=== PATIENT | female | born 1995 | race Caucasian/White ===

== ENCOUNTER 2023-05-29 08:13 | Inpatient (IN) | payer MEDICAID, SELFPAY ==
[2023-05-29] VITALS (9 sets, daily range): BP systolic 103–131; BP diastolic 55–75; PULSE 108–132; RESP 16–20; TEMP 37.1–39.4; O2SAT 98–100; BMI 30.1
--- NOTE | ~2023-05-29 | US_ITS ---
EXAMINATION: US RETROPERITONEAL LIMITED (RENAL ONLY) CLINICAL INFORMATION: UTI. Left CVAT. Question stone versus biloma. COMPARISON: None available. TECHNIQUE: Routine retroperitoneal grayscale imaging of kidneys is performed. FINDINGS: RIGHT KIDNEY: 11.3 x 4.3 x 6.5 cm cm (SAG x AP x TRV). The kidney is normal in size, contour, and echogenicity. Renal cortical thickness is normal. No calculi or focal parenchymal lesions. No hydronephrosis. LEFT KIDNEY: 11.0 x 6.0 x 5.2 cm. cm (SAG x AP x TRV). The kidney is normal in size, contour with increased areas of echogenicity appearing wedge-shaped in the renal cortex suspicious for acute pyelonephritis.. Renal cortical thickness is normal. No calculi or focal parenchymal lesions. No hydronephrosis. US/US renal BI IMPRESSION: 1. Suspect acute pyelonephritis left kidney. No echogenic stones or hydronephrosis seen. 2. The right kidney is unremarkable.
[2023-05-29] MEDS: Acetaminophen 325 MG TABLET 650 MG PO ×2 (09:06→18:45)
[2023-05-29 09:09] LABS: MANUAL DIFF FLAG NO
[2023-05-29 09:13] LABS: Basophils Percent Auto 0.3 % (0-2); Hematocrit 36.7 % (37.0-47.0); Hemoglobin 12.4 g/dl (12.0-16.0); Imm Gran Abs Auto 0.04 X10*3/uL (0.00-0.03); Imm Gran Pct Auto 0.4 % (0.0-0.4); Lymphocytes Absolute Auto 1.3 X10*3/uL (1.2-4.9); Lymphocytes Percent Auto 13.9 % (20-40); Mean Corpuscular HGB Conc 33.8 g/dl (31.0-35.0); Mean Corpuscular Hemoglobin 30.5 pg (27.0-33.0); Mean Corpuscular Volume 90.4 fL (80.0-98.0); Mean Platelet Volume 9.9 fL (9.4-12.3); Monocytes Absolute Auto 1.2 X10*3/uL (0.1-1.2); Monocytes Percent Auto 12.5 % (2-11); Neutrophils Absolute Auto 6.7 x10*3/uL (2.0-8.3); Neutrophils Percent Auto 72.9 % (45-73); Platelet Count 272 X10*3/uL (160-400); Red Blood Count 4.06 X10*6/uL (4.20-5.50); Red Cell Distribution Width 13.9 % (11.0-16.0); White Blood Count 9.2 X10*3/uL (4.8-10.8)
[2023-05-29 09:24] LABS: Anion Gap 12 (12-20); Blood Urea Nitrogen 8 mg/dL (9-16); Calcium 8.9 mg/dL (8.4-10.2); Carbon Dioxide 22 mmol/L (22-29); Chloride 107 mmol/L (96-108); Creatinine Clr Calc Pharmacy 102.9; Estimated Glomerular Filt Rate > 60; Glucose Random 99 mg/dL (60-115); Potassium 3.3 mmol/L (3.3-5.1); Sodium 138 mmol/L (135-145)
[2023-05-29 09:47] LABS: Appearance Urine Hazy; Color Urine RED; Glucose Urine UA Negative (Negative); Leukocyte Esterase Urine Negative (Negative); Nitrite Urine Positive (Negative); PH 5.5 (5.0-9.0); UMIC TRIGGER UACC YES; Urine Blood Large (3+) (Negative); Urine Protein 100 (2+) mg/dL (Neg-Trace)
[2023-05-29 09:49] LABS: UPreg QC Valid YES; Urine Pregnancy NEGATIVE (NEGATIVE)
[2023-05-29 10:07] LABS: Bacteria Urine 4+ (None Seen); Hyaline Casts Urine 0-2 /LPF (0-2); RBC Urine >20 /HPF (0-2); UACC Culture Trigger YES
--- NOTE | 2023-05-29 12:24 | ED_ITS ---
HPI - General Adult General Chief complaint: General Medical Stated complaint: back pain headache blood in urine Time Seen by Provider: 05/29/23 12:21 Source: patient, RN notes reviewed and old records reviewed Mode of arrival: ambulatory History of Present Illness HPI narrative: 28-year-old female with a past medical history of renal stones presenting to the ED complaining of fever T-max 101 degrees, left low back pain, hematuria, and chills worsening x1 week. Admits symptoms were similar to prior kidney stones. Denies nausea/vomiting, diarrhea/constipation, abdominal pain Onset (ago): week(s) Related Data Allergies Allergy/AdvReac Type Severity Reaction Status Date / Time No Known Allergies Allergy Verified 05/29/23 08:53 Review of Systems 2 Review of Systems: Constitutional: + Fever, No Chills ENT/Mouth: No Ear Pain, No Nasal Congestion, No sore throat, No Rhinorrhea, No Swallowing Difficulty Cardiovascular: No Chest Pain, No SOB Respiratory: No Cough, No Sputum, No Wheezing Gastrointestinal: No Nausea, No Vomiting, No Diarrhea, No Constipation, No Abdominal pain Genitourinary: No Dysuria, No Urinary Frequency, + Hematuria, No Urinary Incontinence/retention, No Urgency, + Flank Pain Musculoskeletal: No joint pain, No Myalgias, No Joint Swelling Skin: No Skin Lesions, No rash Neuro: No Weakness Yes all other systems are reviewed and are negative Constitutional: Constitutional: Reports as per [facility] Past Medical History Attestation statement: The following information was validated with the patient. Source: old records reviewed Social History Social History Smoked in Last 30 Days: No Use of substances other than those prescribed or required for medical reasons: No Advance Directives: No Advance Directives Information Provided: No Physical Exam ED Vital Signs: Vital Signs - 24 hr 05/29/23 08:53 05/29/23 11:53 05/29/23 12:24 Temperature 99.9 F 98.9 F 98.7 F Pulse Rate 116 H 108 H 110 H Respiratory Rate 18 18 18 Blood Pressure 115/75 103/68 131/64 Pulse Oximetry 100 98 99 Oxygen Delivery Method Room Air Room Air Room Air 05/29/23 12:38 05/29/23 13:56 05/29/23 13:56 Temperature 99.7 F Pulse Rate 109 H Respiratory Rate 16 18 18 Blood Pressure 106/70 Pulse Oximetry 99 Oxygen Delivery Method Room Air BMI result Body Mass Index 30.1 Const General: cooperative, healthy appearing and no acute distress Orientation/consciousness: patient oriented x3 Limitations: no limitations HENMT Head: Yes normal to inspection and Yes atraumatic Ears: hearing grossly normal bilaterally General nose exam: Normal external nose present Face and sinus: Yes normal facial exam Eyes General: appearance normal, both eyes and all related structures EOM: EOMs intact bilaterally Neck Neck: Yes normal visual inspection and Yes no meningeal signs Resp Effort & Inspection: normal respiratory effort and no respiratory distress Auscultation: clear to auscultation bilaterally Cardio Rate: regular rate Heart sounds: S1 normal heart sound present and S2 normal heart sound present GI Inspection: Yes normal to inspection Palpation (GI): Soft to palpation, nontender, no guarding and not rigid General: Yes CVA tenderness on the left Back/Spine/Pelvis Back: CVA tenderness Skin Rashes: no rashes Wounds: no wounds Neuro General: patient oriented x3, tone normal and no meningeal signs Cranial nerves: Yes CN's II-XII intact bilaterally Gait exam (Neuro): Normal gait present Extrem General: Yes normal to inspection Course Course Course Narrative: -1252--no leukocytosis. Magnesium mildly low to 1.5 >> p.o. repletion ordered -UA infected and with RBCs > lactic/blood cultures and empiric IV Rocephin ordered US renal BI IMPRESSION: 1. Suspect acute pyelonephritis left kidney. No echogenic stones or hydronephrosis seen. 2. The right kidney is unremarkable. > on re-evaluation patient is still very pale and uncomfortable. Will give IV morphine. Plan for admission. Medications Administered Discontinued Medications Generic Name Dose Route Start Last Admin Trade Name Freq PRN Reason Stop Dose Admin Acetaminophen 650 mg 05/29/23 08:57 05/29/23 09:06 Acetaminophen 325 Mg Tablet PO 05/29/23 08:58 650 mg ONCE ONE Administration Sodium Chloride 1,000 mls @ 999 mls/hr 05/29/23 12:30 05/29/23 13:56 Ns IV 05/29/23 13:30 Infused .Q1H1M DAIANA Infusion Ceftriaxone Sodium 1 gm/ 50 mls @ 100 mls/hr 05/29/23 12:30 05/29/23 13:59 Sodium Chloride IV 05/29/23 12:59 Infused ONCE ONE Infusion Sodium Chloride 1,000 mls @ 999 mls/hr 05/29/23 12:45 05/29/23 13:56 Ns IV 05/29/23 13:45 999 mls/hr .Q1H1M DAIANA Administration Ketorolac Tromethamine 15 mg 05/29/23 12:30 05/29/23 12:42 Ketorolac Tromethamine 15 Mg/Ml Vial IVPUSH 05/29/23 12:31 15 mg ONCE ONE Administration Magnesium Oxide 800 mg 05/29/23 12:53 05/29/23 13:55 Magnesium Oxide 400 Mg Tablet PO 05/29/23 12:54 800 mg ONCE ONE Administration Medical Decision Making Medical Decision Making MDM Narrative: 28-year-old female with a past medical history of renal stones presenting to the ED complaining of fever T-max 101 degrees, left low back pain, hematuria, and chills worsening x1 week. On exam low-grade temp 99.9, tachycardic likely from fever, appears uncomfortable, abdomen soft/nontender, left CVAT noted. Concern for renal stone vs UTI/pyelo. Lower suspicion for appendicitis/diverticulitis or cholecystitis/lithiasis. Plan: Labs, UA, IVF, pain control/antipyretic, ultrasound, re-evaluate, +/- anticipated admission Please refer to course for remaining clinical decision making, interpretation of labs/imaging results, and discussions with consultants and/or family members. Differential Diagnosis Differential Diagnoses: The differential diagnosis associated with the presentation includes As above Admission/Observation Consideration of admission/observation: Escalation of care including admission/observation considered Lab Data [facility] Lab Attestation statement: I reviewed the patient's lab results. 05/29/23 09:04 05/29/23 09:04 Labs: Lab Results 05/29/23 05/29/23 05/29/23 Range/Units 09:04 09:38 12:36 WBC 9.2 (4.8-10.8) X10*3/uL RBC 4.06 L (4.20-5.50) X10*6/uL Hgb 12.4 (12.0-16.0) g/dl Hct 36.7 L (37.0-47.0) % MCV 90.4 (80.0-98.0) fL MCH 30.5 (27.0-33.0) pg MCHC 33.8 (31.0-35.0) g/dl RDW 13.9 (11.0-16.0) % Plt Count 272 (160-400) X10*3/uL MPV 9.9 (9.4-12.3) fL Immature Gran % (Auto) 0.4 (0.0-0.4) % Neut % (Auto) 72.9 (45-73) % Lymph % (Auto) 13.9 L (20-40) % [place] % (Auto) 12.5 H (2-11) % Eos % (Auto) 0.0 (0-4) % Baso % (Auto) 0.3 (0-2) % Lymph # (Auto) 1.3 (1.2-4.9) X10*3/uL [place] # (Auto) 1.2 (0.1-1.2) X10*3/uL Eos # (Auto) 0.0 (0.0-0.4) X10*3/uL Baso # (Auto) 0.0 (0.0-0.2) X10*3/uL Abs Immat Gran (auto) 0.04 H (0.00-0.03) X10*3/uL Absolute Neuts (auto) 6.7 (2.0-8.3) x10*3/uL Absolute Nucleated RBC 0.000 (0.0-0.012) X10*3/uL Nucleated RBC % (auto) 0.0 (0.0-0.2) /100WBC Sodium 138 (135-145) mmol/L Potassium 3.3 (3.3-5.1) mmol/L Chloride 107 (96-108) mmol/L Carbon Dioxide 22 (22-29) mmol/L Anion Gap 12 (12-20) BUN 8 L (9-16) mg/dL Creatinine 0.71 (0.5-1.4) mg/dL Estim Creat Clear Calc 102.9 Estimated GFR > 60 Random Glucose 99 (60-115) mg/dL Lactic Acid 0.8 (0.5-2.0) mmol/L Calcium 8.9 (8.4-10.2) mg/dL Magnesium 1.5 L (1.6-2.6) mg/dL Total Bilirubin 0.6 (0.0-1.0) mg/dL Direct Bilirubin 0.2 (0.0-0.5) mg/dL AST 15 (5-31) U/L ALT 12 (0-31) U/L Alkaline Phosphatase 53 (39-117) U/L Total Protein 7.4 (6.5-8.0) g/dL Albumin 3.9 (3.5-5.0) g/dL Lipase 10 (8-78) U/L Urine Color RED Urine Appearance Hazy Urine pH 5.5 (5.0-9.0) Ur Specific [place] 1.020 (1.005-1.025) Urine Protein 100 (2+) H (Neg-Trace) mg/dL Urine Glucose (UA) Negative (Negative) mg/dL Urine Ketones See Note (Negative) mg/dL Urine Blood Large (3+) H (Negative) Urine Nitrite Positive H (Negative) Ur Leukocyte Esterase Negative (Negative) Urine RBC >20 H (0-2) /HPF Urine WBC 11-20 H (0-5) /HPF Ur Squamous Epith Cells 3-5 (0-2) /HPF Urine Bacteria 4+ (None Seen) Hyaline Casts 0-2 (0-2) /LPF Urine Test NEGATIVE (NEGATIVE) COVID-19 (KIERSTEN) (Negative) COVID-19 Clin Com Influenza Type A (HYACINTH) (Negative) Influenza Type B (HYACINTH) (Negative) Influenza A & B Note 05/29/23 Range/Units 13:07 WBC (4.8-10.8) X10*3/uL RBC (4.20-5.50) X10*6/uL Hgb (12.0-16.0) g/dl Hct (37.0-47.0) % MCV (80.0-98.0) fL MCH (27.0-33.0) pg MCHC (31.0-35.0) g/dl RDW (11.0-16.0) % Plt Count (160-400) X10*3/uL MPV (9.4-12.3) fL Immature Gran % (Auto) (0.0-0.4) % Neut % (Auto) (45-73) % Lymph % (Auto) (20-40) % [place] % (Auto) (2-11) % Eos % (Auto) (0-4) % Baso % (Auto) (0-2) % Lymph # (Auto) (1.2-4.9) X10*3/uL [place] # (Auto) (0.1-1.2) X10*3/uL Eos # (Auto) (0.0-0.4) X10*3/uL Baso # (Auto) (0.0-0.2) X10*3/uL Abs Immat Gran (auto) (0.00-0.03) X10*3/uL Absolute Neuts (auto) (2.0-8.3) x10*3/uL Absolute Nucleated RBC (0.0-0.012) X10*3/uL Nucleated RBC % (auto) (0.0-0.2) /100WBC Sodium (135-145) mmol/L Potassium (3.3-5.1) mmol/L Chloride (96-108) mmol/L Carbon Dioxide (22-29) mmol/L Anion Gap (12-20) BUN (9-16) mg/dL Creatinine (0.5-1.4) mg/dL Estim Creat Clear Calc Estimated GFR Random Glucose (60-115) mg/dL Lactic Acid (0.5-2.0) mmol/L Calcium (8.4-10.2) mg/dL Magnesium (1.6-2.6) mg/dL Total Bilirubin (0.0-1.0) mg/dL Direct Bilirubin (0.0-0.5) mg/dL AST (5-31) U/L ALT (0-31) U/L Alkaline Phosphatase (39-117) U/L Total Protein (6.5-8.0) g/dL Albumin (3.5-5.0) g/dL Lipase (8-78) U/L Urine Color Urine Appearance Urine pH (5.0-9.0) Ur Specific [place] (1.005-1.025) Urine Protein (Neg-Trace) mg/dL Urine Glucose (UA) (Negative) mg/dL Urine Ketones (Negative) mg/dL Urine Blood (Negative) Urine Nitrite (Negative) Ur Leukocyte Esterase (Negative) Urine RBC (0-2) /HPF Urine WBC (0-5) /HPF Ur Squamous Epith Cells (0-2) /HPF Urine Bacteria (None Seen) Hyaline Casts (0-2) /LPF Urine Test (NEGATIVE) COVID-19 (KIERSTEN) Negative (Negative) COVID-19 Clin Com See Note Influenza Type A (HYACINTH) Negative (Negative) Influenza Type B (HYACINTH) Negative (Negative) Influenza A & B Note See Note Independent Interpretation I performed an independent interpretation of an: Ultrasound Radiology Impression Discussion of test interpretation with radiology: I have reviewed the radiologist's reading. External Record Review External record reviewed: Inpatient record, Office record, Outpatient record, Prior outpatient labs, Prior outpatient radiology, Primary care record and Outside ED record Tests considered The following testing was considered but not selected: As above Prescription Management I considered prescription management with: Pain Medication and Antibiotic Critical Care Time Critical Care Time Critical Care Time: Yes Total Critical Care Time: 32 Attestation: I have personally provided critical care time exclusive of time spent on separately billable procedures. Time includes review of lab data, radiology results, discussion with consultants, and monitoring for potential decompensation. Intervention performed as documented. Discharge Plan Discharge Clinical Impression: Pyelonephritis Patient Disposition: Admitted As Inpatient
[2023-05-29] MEDS: 0.9 % Sodium Chloride 1,000 ML 999 ML IV ×2 (12:38→13:56)
[2023-05-29] MEDS: Ketorolac Tromethamine 15 MG/ML VIAL IVPUSH ×2 (12:42→15:17)
--- NOTE | 2023-05-29 12:44 | PC.NURSE ---
sent first set 's w [employer]. tech to draw next set before abx
[2023-05-29 12:49] LABS: Alanine Aminotransferase 12 U/L (0-31); Albumin Level 3.9 g/dL (3.5-5.0); Alkaline Phosphatase 53 U/L (39-117); Aspartate Amino Transferase 15 U/L (5-31); Bilirubin Direct 0.2 mg/dL (0.0-0.5); Bilirubin Total 0.6 mg/dL (0.0-1.0); Lipase 10 U/L (8-78); Magnesium 1.5 mg/dL (1.6-2.6); Total Protein 7.4 g/dL (6.5-8.0)
[2023-05-29 13:01] LABS: Lactic Acid 0.8 mmol/L (0.5-2.0)
[2023-05-29] MEDS: cefTRIAXone sodium 1 GM in 0.9 % Sodium Chloride 50 ML IV (13:13)
[2023-05-29 13:34] LABS: IDNOW Serial# 08D9AD1C; Influenza A Negative (Negative); Influenza B2 Negative (Negative)
[2023-05-29 13:35] LABS: COVID-19 Test Negative (Negative); IDNOW Serial# BCCEAD1C
[2023-05-29] MEDS: Magnesium Oxide 400 MG TABLET 800 MG PO (13:55)
--- NOTE | 2023-05-29 13:58 | PC.NURSE ---
tad driscoll notified 99.7, feels warm. pa also notified 5/10 pain
[2023-05-29] MEDS: Morphine Sulfate 2 MG/ML CARTRIDGE IVPUSH ×2 (15:17→18:45)
--- NOTE | 2023-05-29 15:56 | P.HPHOSP_ITS ---
History of Present Illness Date of Service: 05/29/23 Chief Complaint: Left flank pain 28-year-old female past medical history significant for renal calculi presents to the emergency room today with fever of 101 left low back pain and hematuria and chills worsening over the last week. She states the symptoms are similar to past kidney stones. In the emergency room workup is consistent with pyelonephritis. She received ceftriaxone IV and will be admitted for treatment of same Review of Systems 2 Review of Systems: Denies chest pain Denies shortness of breath Denies fever chills Denies nausea vomiting diarrhea PMFSH Social History Smoked in Last 30 Days: No Use of substances other than those prescribed or required for medical reasons: No Advance Directives: No Advance Directives Information Provided: No Meds Allergies Allergy/AdvReac Type Severity Reaction Status Date / Time No Known Allergies Allergy Verified 05/29/23 08:53 Active Medications: Current Medications Acetaminophen (Acetaminophen 325 Mg Tablet) 650 mg PO Q6H PRN PRN Reason: Pain, Mild (Pain Scale 1-3) Enoxaparin Sodium (Enoxaparin Sodium 40 Mg/0.4 Ml Syringe) 40 mg SUBCUT DAILY COUNTS INCLUDE 234 BEDS AT THE [facility] Ondansetron HCl (Ondansetron Hcl 4 Mg/2 Ml Vial) 4 mg IVPUSH Q8H PRN PRN Reason: Nausea and Vomiting Oxycodone HCl (Oxycodone Hcl Immed Release 5 Mg Tablet) 10 mg PO Q4H PRN PRN Reason: Pain, Severe (Pain Scale 7-10) Sodium Chloride (0.9 % Sodium Chloride Flush 3 Ml Syringe) 3 ml IVFLUSH QSHIFT COUNTS INCLUDE 234 BEDS AT THE [facility] Physical Exam 2 Vital Signs and Narrative: Vital Signs: Last Vital Signs Temp 99.7 F 05/29/23 13:56 Pulse 112 H 05/29/23 15:10 Resp 16 05/29/23 15:17 BP 126/68 05/29/23 15:10 Pulse Ox 99 05/29/23 15:10 O2 Del Method Room Air 05/29/23 15:10 BMI result Body Mass Index 30.1 Const: Other: Awake alert uncomfortable appearing Resp: Other: Clear to auscultation bilaterally no rales rhonchi or wheezes Cardio: Other: No S4; positive S1-S2; no S3 murmurs rubs or gallops GI: Other: Soft nontender nondistended normoactive bowel sounds Back/Spine/Pelvis: Other: Left CVA tenderness Neuro: Other: Cranial nerves 2-12 grossly intact as tested. Motor is 5/5 all extremities. Sensation is intact. Cognition appropriate Extrem: Other: No edema bilaterally Results Labs 05/29/23 09:04 05/29/23 09:04 Labs: Laboratory Results - last 24 hr 05/29/23 05/29/23 05/29/23 09:04 09:38 12:36 MCV 90.4 MCH 30.5 MCHC 33.8 RDW 13.9 Plt Count 272 MPV 9.9 Immature Gran % (Auto) 0.4 Neut % (Auto) 72.9 Lymph % (Auto) 13.9 L [place] % (Auto) 12.5 H Eos % (Auto) 0.0 Baso % (Auto) 0.3 Lymph # (Auto) 1.3 [place] # (Auto) 1.2 Eos # (Auto) 0.0 Baso # (Auto) 0.0 Abs Immat Gran (auto) 0.04 H Absolute Neuts (auto) 6.7 Absolute Nucleated RBC 0.000 Nucleated RBC % (auto) 0.0 Anion Gap 12 Estim Creat Clear Calc 102.9 Estimated GFR > 60 Random Glucose 99 Lactic Acid 0.8 Calcium 8.9 Magnesium 1.5 L Total Bilirubin 0.6 Direct Bilirubin 0.2 AST 15 ALT 12 Alkaline Phosphatase 53 Total Protein 7.4 Albumin 3.9 Lipase 10 Urine Color RED Urine Appearance Hazy Urine pH 5.5 Ur Specific [place] 1.020 Urine Protein 100 (2+) H Urine Glucose (UA) Negative Urine Ketones See Note Urine Blood Large (3+) H Urine Nitrite Positive H Ur Leukocyte Esterase Negative Urine RBC >20 H Urine WBC 11-20 H Ur Squamous Epith Cells 3-5 Urine Bacteria 4+ Hyaline Casts 0-2 Urine Test NEGATIVE COVID-19 (KIERSTEN) COVID-19 Clin Com Influenza Type A (HYACINTH) Influenza Type B (HYACINTH) Influenza A & B Note 05/29/23 13:07 MCV MCH MCHC RDW Plt Count MPV Immature Gran % (Auto) Neut % (Auto) Lymph % (Auto) [place] % (Auto) Eos % (Auto) Baso % (Auto) Lymph # (Auto) [place] # (Auto) Eos # (Auto) Baso # (Auto) Abs Immat Gran (auto) Absolute Neuts (auto) Absolute Nucleated RBC Nucleated RBC % (auto) Anion Gap Estim Creat Clear Calc Estimated GFR Random Glucose Lactic Acid Calcium Magnesium Total Bilirubin Direct Bilirubin AST ALT Alkaline Phosphatase Total Protein Albumin Lipase Urine Color Urine Appearance Urine pH Ur Specific [place] Urine Protein Urine Glucose (UA) Urine Ketones Urine Blood Urine Nitrite Ur Leukocyte Esterase Urine RBC Urine WBC Ur Squamous Epith Cells Urine Bacteria Hyaline Casts Urine Test COVID-19 (KIERSTEN) Negative COVID-19 Clin Com See Note Influenza Type A (HYACINTH) Negative Influenza Type B (HYACINTH) Negative Influenza A & B Note See Note Imaging Radiologist's Impressions: Impressions Renal Ultrasound 05/29/23 13:30 IMPRESSION: 1. Suspect acute pyelonephritis left kidney. No echogenic stones or hydronephrosis seen. 2. The right kidney is unremarkable. Assessment and Plan (1) Pyelonephritis: Status: Acute Plan 28-year-old female with known history of renal calculi presents with fevers to 101 and left flank pain worsening over the past week. Workup in emergency room consistent with pyelonephritis. Receive 1 g ceftriaxone along with urine and blood cultures 1. Pyelonephritis -ceftriaxone 1 g IV (1) -pain management with morphine and oxycodone -IV volume repletion with lactated Ringer's -payan cultured; therapies directed based on results of culture Full code Lovenox Patient will require 2 midnights inpatient stay going forward for IV antibiotics to treat acute pyelonephritis. This cannot be achieved a lesser acute setting Quality Stroke Does the patient have a stroke diagnosis?: No VTE Prior VTE?: No VTE Risk Level:: Medical - low VTE Device Contraindication: Treatment Not Indicated VTE Drug Contraindication: N/A - Med Ordered
--- NOTE | 2023-05-29 16:45 | PC.NURSE ---
pt to overflow transported by staff member.
--- NOTE | 2023-05-29 17:10 | PHA.MEDREC ---
Pharmacy Consult ? Medication Reconciliation Pharmacy has completed the medication reconciliation. Spoke with patient in the ED. Patient is not on any medications or OTC meds
[2023-05-29] MEDS: ondansetron HCL 4 MG/2 ML VIAL IVPUSH (18:46)
[2023-05-30] MEDS: 0.9 % Sodium Chloride Flush 3 ML SYRINGE IVFLUSH ×3 (00:37→16:01)
[2023-05-30 02:01] VITALS: BP 103/61; PULSE 114; RESP 18; TEMP 37; O2SAT 99
[2023-05-30 05:49] LABS: MANUAL DIFF FLAG NO
--- NOTE | 2023-05-30 05:51 | PC.NURSE ---
assumed care of pt at 2300. PT alert and oriented, reports no pain. VSS. IV line intact and patent. safety precautions in place. PT ambulated to bathroom x2 independently with a steady gait. Morning labs drawn by phlebotomy. Call santos within reach. Plan of care ongoing.
[2023-05-30 05:54] LABS: Basophils Percent Auto 0.2 % (0-2); Hematocrit 32.6 % (37.0-47.0); Hemoglobin 10.9 g/dl (12.0-16.0); Imm Gran Abs Auto 0.03 X10*3/uL (0.00-0.03); Imm Gran Pct Auto 0.3 % (0.0-0.4); Lymphocytes Absolute Auto 1.4 X10*3/uL (1.2-4.9); Lymphocytes Percent Auto 13.5 % (20-40); Mean Corpuscular HGB Conc 33.4 g/dl (31.0-35.0); Mean Corpuscular Hemoglobin 29.8 pg (27.0-33.0); Mean Corpuscular Volume 89.1 fL (80.0-98.0); Mean Platelet Volume 9.8 fL (9.4-12.3); Monocytes Absolute Auto 1.1 X10*3/uL (0.1-1.2); Monocytes Percent Auto 11.1 % (2-11); Neutrophils Absolute Auto 7.7 x10*3/uL (2.0-8.3); Neutrophils Percent Auto 74.9 % (45-73); Platelet Count 257 X10*3/uL (160-400); Red Blood Count 3.66 X10*6/uL (4.20-5.50); Red Cell Distribution Width 13.6 % (11.0-16.0); White Blood Count 10.3 X10*3/uL (4.8-10.8)
[2023-05-30 06:14] LABS: Alanine Aminotransferase 13 U/L (0-31); Albumin Level 3.4 g/dL (3.5-5.0); Alkaline Phosphatase 54 U/L (39-117); Anion Gap 11 (12-20); Aspartate Amino Transferase 23 U/L (5-31); Bilirubin Total 0.3 mg/dL (0.0-1.0); Blood Urea Nitrogen 7 mg/dL (9-16); Calcium 8.3 mg/dL (8.4-10.2); Carbon Dioxide 22 mmol/L (22-29); Chloride 106 mmol/L (96-108); Creatinine Clr Calc Pharmacy 107.4; Estimated Glomerular Filt Rate > 60; Glucose Random 113 mg/dL (60-115); Potassium 3.1 mmol/L (3.3-5.1); Sodium 136 mmol/L (135-145); Total Protein 6.2 g/dL (6.5-8.0)
[2023-05-30 07:58] VITALS: BP 114/67; PULSE 118; RESP 19; TEMP 38.5
[2023-05-30] MEDS: Acetaminophen 325 MG TABLET 650 MG PO ×2 (07:59→15:32)
[2023-05-30] MEDS: cefTRIAXone sodium 2 GM in 0.9 % Sodium Chloride 50 ML IV (08:00)
[2023-05-30] MEDS: Enoxaparin Sodium 40 MG/0.4 ML SYRINGE SUBCUT (08:00)
--- NOTE | 2023-05-30 08:05 | PC.NURSE ---
patient a&ox3, denying pain, pt noted to have a fever-pt medicated with tylenol for fever but vitals otherwise stable, also noted is the room was hot, this nurse attempted to leave door open to cool off room but patient is refusing stating she wants it closed and for the room to be warm. iv antibiotics given per order, call santos within reach, will continue to monitor
[2023-05-30 10:57] VITALS: TEMP 36.7
--- NOTE | 2023-05-30 13:08 | MHC.CM.PN ---
pt is indepedent has car inparking lot will be dcd home no servies
[2023-05-30] MEDS: oxyCODONE HCl Immed Release 5 MG TABLET 10 MG PO (13:31)
--- NOTE | 2023-05-30 13:31 | PC.NURSE ---
pt c/o 12/03 back pain, pt medicated for pain per orders, will continue to monitor
[2023-05-30 14:00] VITALS: BP 102/61; PULSE 89; RESP 18; TEMP 36.9; O2SAT 97
--- NOTE | 2023-05-30 14:16 | PC.NURSE ---
patient a&o, oob sitting in recliner chair, vss, pt currently watching tv, call santos within reach, will continue to monitor
--- NOTE | 2023-05-30 14:18 | PC.NURSE ---
patient a&ox3, pt rang stating she was incontinent of stool, pt requesting to take a shower- pt was brought to shower. pts vitals are stable call santos within reach, will continue to monitor
--- NOTE | 2023-05-30 15:04 | P.PNIM_ITS ---
Subjective Subjective Date of Service: 05/30/23 Interval History: Feels better today however is to with left flank pain Review of Systems Denies chest pain Denies shortness of breath Denies fever chills Denies nausea vomiting diarrhea Physical Exam 2 Vital Signs: Vital Signs: Last Vital Signs Temp 98.5 F 05/30/23 14:00 Pulse 89 05/30/23 14:00 Resp 18 05/30/23 14:00 BP 102/61 05/30/23 14:00 Pulse Ox 97 05/30/23 14:00 O2 Del Method Room Air 05/30/23 14:00 BMI result Body Mass Index 30.1 Const: Other: Awake alert uncomfortable appearing Resp: Other: Clear to auscultation bilaterally no rales rhonchi or wheezes Cardio: Other: No S4; positive S1-S2; no S3 murmurs rubs or gallops GI: Other: Soft nontender nondistended normoactive bowel sounds Back/Spine/Pelvis: Other: Left CVA tenderness Neuro: Other: Cranial nerves 2-12 grossly intact as tested. Motor is 5/5 all extremities. Sensation is intact. Cognition appropriate Extrem: Other: No edema bilaterally Objective Data Active Medications Acetaminophen (Acetaminophen 325 Mg Tablet) 650 mg PO Q6H PRN PRN Reason: Pain, Mild (Pain Scale 1-3) Last Admin: 05/30/23 07:59 Dose: 650 mg Documented By: JORGE Enoxaparin Sodium (Enoxaparin Sodium 40 Mg/0.4 Ml Syringe) 40 mg SUBCUT DAILY [facility] Last Admin: 05/30/23 08:00 Dose: 40 mg Documented By: JORGE Ceftriaxone Sodium 2 gm/ (Sodium Chloride) 50 mls @ 100 mls/hr IV DAILY [facility] Last Infusion: 05/30/23 08:30 Dose: Infused Documented By: JORGE Morphine Sulfate (Morphine Sulfate 2 Mg/Ml Cartridge) 2 mg IVPUSH Q4H PRN; Protocol PRN Reason: Pain, Moderate(Pain Scale 4-6) Last Admin: 05/29/23 18:45 Dose: 2 mg Documented By: DONTAE Ondansetron HCl (Ondansetron Hcl 4 Mg/2 Ml Vial) 4 mg IVPUSH Q8H PRN PRN Reason: Nausea and Vomiting Last Admin: 05/29/23 18:46 Dose: 4 mg Documented By: DONTAE Oxycodone HCl (Oxycodone Hcl Immed Release 5 Mg Tablet) 10 mg PO Q4H PRN PRN Reason: Pain, Severe (Pain Scale 7-10) Last Admin: 05/30/23 13:31 Dose: 10 mg Documented By: JORGE Sodium Chloride (0.9 % Sodium Chloride Flush 3 Ml Syringe) 3 ml IVFLUSH QSHIFT [facility] Last Admin: 05/30/23 08:00 Dose: 3 ml Documented By: JORGE Labs 05/30/23 05:38 05/30/23 05:38 Labs: Laboratory Results - last 24 hr 05/30/23 05:38 MCV 89.1 MCH 29.8 MCHC 33.4 RDW 13.6 Plt Count 257 MPV 9.8 Immature Gran % (Auto) 0.3 Neut % (Auto) 74.9 H Lymph % (Auto) 13.5 L [place] % (Auto) 11.1 H Eos % (Auto) 0.0 Baso % (Auto) 0.2 Lymph # (Auto) 1.4 [place] # (Auto) 1.1 Eos # (Auto) 0.0 Baso # (Auto) 0.0 Abs Immat Gran (auto) 0.03 Absolute Neuts (auto) 7.7 Absolute Nucleated RBC 0.000 Nucleated RBC % (auto) 0.0 Anion Gap 11 L Estim Creat Clear Calc 107.4 Estimated GFR > 60 Random Glucose 113 Calcium 8.3 L D Total Bilirubin 0.3 AST 23 ALT 13 Alkaline Phosphatase 54 Total Protein 6.2 L Albumin 3.4 L Microbiology Microbiology Results: Microbiology 05/29/23 12:36 Blood Culture - Preliminary Blood - Venous No growth after 24 hours. 05/29/23 Unknown Urine Culture - Preliminary Urine clean catch - Urine kaba top Gram negative jono Assessment and Plan (1) Pyelonephritis: Status: Acute Plan 28-year-old female with known history of renal calculi presents with fevers to 101 and left flank pain worsening over the past week. Workup in emergency room consistent with pyelonephritis. Receive 1 g ceftriaxone along with urine and blood cultures 1. Pyelonephritis -ceftriaxone 1 g IV (2) -pain management with morphine and oxycodone -IV volume repletion with lactated Ringer's -payan cultured; therapies directed based on results of culture Full code Lovenox Patient require ongoing hospitalization for IV antibiotics to treat pyelonephritis pending cultures Quality Stroke Does the patient have a stroke diagnosis?: No VTE Prior VTE?: No VTE Risk Level:: Medical - low VTE Device Contraindication: Treatment Not Indicated VTE Drug Contraindication: N/A - Med Ordered
[2023-05-30] MEDS: ondansetron HCL 4 MG/2 ML VIAL IVPUSH (15:30)
[2023-05-30 22:58] VITALS: BP 104/66; PULSE 104; RESP 15; TEMP 38.3; O2SAT 97
[2023-05-31] MEDS: 0.9 % Sodium Chloride Flush 3 ML SYRINGE IVFLUSH ×4 (02:23→23:56)
[2023-05-31 05:49] VITALS: BP 106/59; PULSE 85; RESP 16; TEMP 37.3; O2SAT 98
[2023-05-31] MEDS: Enoxaparin Sodium 40 MG/0.4 ML SYRINGE SUBCUT (07:55)
[2023-05-31] MEDS: cefTRIAXone sodium 2 GM in 0.9 % Sodium Chloride 50 ML IV (07:55)
[2023-05-31 07:58] VITALS: BP 101/63; PULSE 91; RESP 14; TEMP 37; O2SAT 98
--- NOTE | 2023-05-31 08:10 | PC.NURSE ---
PT IS A/O X 4 NO SOB/CRISTIANA NOTED SPEAKS IN FULL SENTENCES. AMB (I) GAIT STEADY. NO EDEMA NOTED. PT AWARE OF PLAN OF CARE.
[2023-05-31 09:50] LABS: Hematocrit 31.5 % (37.0-47.0); Hemoglobin 10.6 g/dl (12.0-16.0); Mean Corpuscular HGB Conc 33.7 g/dl (31.0-35.0); Mean Corpuscular Hemoglobin 30.2 pg (27.0-33.0); Mean Corpuscular Volume 89.7 fL (80.0-98.0); Mean Platelet Volume 9.8 fL (9.4-12.3); Platelet Count 292 X10*3/uL (160-400); Red Blood Count 3.51 X10*6/uL (4.20-5.50); Red Cell Distribution Width 13.7 % (11.0-16.0); White Blood Count 10.1 X10*3/uL (4.8-10.8)
--- NOTE | 2023-05-31 09:56 | P.PNIM_ITS ---
Subjective Subjective Date of Service: 05/31/23 Interval History: febrile to 101 @2258 overnight appetite not good L flank pain improved Review of Systems Review of Systems: Yes all other systems are reviewed and are negative Physical Exam 2 Vital Signs: Vital Signs: Last Vital Signs Temp 98.6 F 05/31/23 07:58 Pulse 91 05/31/23 07:58 Resp 14 05/31/23 07:58 BP 101/63 05/31/23 07:58 Pulse Ox 98 05/31/23 07:58 O2 Del Method Room Air 05/31/23 07:58 BMI result Body Mass Index 30.1 Gen: in no acute distress HEENT: sclera anicteric, moist mucus membranes Neck: supple Lungs: clear to auscultation bilaterally Heart: regular rate and rhythm, no murmurs Abd: soft, non-tender, non-distended : L flank tender Ext: no edema Skin: warm/well-perfused Neuro: alert and oriented x3, no focal findings Psych: appropriate affect Objective Data Active Medications Acetaminophen (Acetaminophen 325 Mg Tablet) 650 mg PO Q6H PRN PRN Reason: Pain, Mild (Pain Scale 1-3) Last Admin: 05/30/23 15:32 Dose: 650 mg Documented By: JORGE Enoxaparin Sodium (Enoxaparin Sodium 40 Mg/0.4 Ml Syringe) 40 mg SUBCUT DAILY [facility] Last Admin: 05/31/23 07:55 Dose: 40 mg Documented By: MALIK Ceftriaxone Sodium 2 gm/ (Sodium Chloride) 50 mls @ 100 mls/hr IV DAILY [facility] Last Infusion: 05/31/23 09:00 Dose: Infused Documented By: MALIK Morphine Sulfate (Morphine Sulfate 2 Mg/Ml Cartridge) 2 mg IVPUSH Q4H PRN; Protocol PRN Reason: Pain, Moderate(Pain Scale 4-6) Last Admin: 05/29/23 18:45 Dose: 2 mg Documented By: DONTAE Ondansetron HCl (Ondansetron Hcl 4 Mg/2 Ml Vial) 4 mg IVPUSH Q8H PRN PRN Reason: Nausea and Vomiting Last Admin: 05/30/23 15:30 Dose: 4 mg Documented By: JORGE Oxycodone HCl (Oxycodone Hcl Immed Release 5 Mg Tablet) 10 mg PO Q4H PRN PRN Reason: Pain, Severe (Pain Scale 7-10) Last Admin: 05/30/23 13:31 Dose: 10 mg Documented By: JORGE Sodium Chloride (0.9 % Sodium Chloride Flush 3 Ml Syringe) 3 ml IVFLUSH QSHIFT [facility] Last Admin: 05/31/23 08:09 Dose: 3 ml Documented By: SCOC Labs 05/31/23 09:25 05/30/23 05:38 Labs: Laboratory Results - last 24 hr 05/31/23 09:25 MCV 89.7 MCH 30.2 MCHC 33.7 RDW 13.7 Plt Count 292 MPV 9.8 Absolute Nucleated RBC 0.000 Nucleated RBC % (auto) 0.0 Microbiology Microbiology Results: Microbiology 05/29/23 Unknown Urine Culture - Final Urine clean catch - Urine kaba top Escherichia coli 05/29/23 13:06 Blood Culture - Preliminary Blood - Venous No growth after 24 hours. 05/29/23 12:36 Blood Culture - Preliminary Blood - Venous No growth after 24 hours. Assessment and Plan (1) Pyelonephritis: Status: Acute Plan d3 28yo F with hx nephrolithiasis admitted for pyelonephritis pyelonephritis - ceftriaxone d3, follow BCx + UCx - analgesia with APAP, oxycodone, morphine hypoK - recheck lytes today VTE ppx - LMWH dispo - anticipate home once defervesced x24h + cultures back In my clinical judgment, the patient requires continued inpatient hospitalization for the following reasons: IV ABX Total time managing care of this patient today: 30 minutes. Quality Stroke Does the patient have a stroke diagnosis?: No VTE Prior VTE?: No VTE Risk Level:: Medical - low VTE Device Contraindication: Treatment Not Indicated VTE Drug Contraindication: N/A - Med Ordered
[2023-05-31 10:14] LABS: Anion Gap 12 (12-20); Blood Urea Nitrogen 7 mg/dL (9-16); Calcium 8.7 mg/dL (8.4-10.2); Carbon Dioxide 26 mmol/L (22-29); Chloride 105 mmol/L (96-108); Creatinine Clr Calc Pharmacy 121.7; Estimated Glomerular Filt Rate > 60; Glucose Random 109 mg/dL (60-115); Potassium 2.7 mmol/L (3.3-5.1); Sodium 140 mmol/L (135-145)
--- NOTE | 2023-05-31 13:28 | PC.NURSE ---
FAMILY [facility]BERS AT BEDSIDE.
[2023-05-31 13:52] VITALS: BP 111/65; PULSE 95; RESP 24; TEMP 36.7; O2SAT 98
--- NOTE | 2023-05-31 13:54 | PC.NURSE ---
RN TO RN REPORT FAXED TO [facility]. PT AWARE OF PLAN OF CARE FOR TRANSFER TO ROOM 372 VIA W/C.
[2023-05-31 15:07] VITALS: BP 109/71; PULSE 78; RESP 18; TEMP 36.5; O2SAT 98
--- NOTE | 2023-05-31 15:40 | PC.NURSE ---
Low K 2.7 Dr. Galvan made aware at 1512
[2023-05-31] MEDS: Potassium Chloride ER 20 MEQ TAB.ER.PRT 40 MEQ PO ×2 (15:51→20:12)
[2023-05-31 16:05] LABS: Magnesium 1.9 mg/dL (1.6-2.6)
[2023-05-31 19:19] VITALS: BP 100/60; PULSE 86; RESP 18; TEMP 36.6; O2SAT 98
[2023-05-31 23:18] VITALS: BP 95/51; PULSE 76; RESP 18; TEMP 36.4; O2SAT 98
[2023-06-01 03:39] VITALS: BP 105/74; PULSE 61; RESP 18; TEMP 36.7; O2SAT 98
[2023-06-01 06:52] LABS: Anion Gap 13 (12-20); Blood Urea Nitrogen 7 mg/dL (9-16); Carbon Dioxide 26 mmol/L (22-29); Chloride 107 mmol/L (96-108); Creatinine Clr Calc Pharmacy 128.1; Estimated Glomerular Filt Rate > 60; Glucose Random 88 mg/dL (60-115); Potassium 3.9 mmol/L (3.3-5.1); Sodium 142 mmol/L (135-145)
[2023-06-01 07:33] VITALS: BP 109/56; PULSE 77; RESP 17; TEMP 36.3; O2SAT 99
[2023-06-01] MEDS: cefTRIAXone sodium 2 GM in 0.9 % Sodium Chloride 50 ML IV (09:58)
[2023-06-01] MEDS: 0.9 % Sodium Chloride Flush 3 ML SYRINGE IVFLUSH (09:59)
--- NOTE | 2023-06-01 10:34 | PM.DS ---
DS: Providers Provider Date of Service: 06/01/23 Date of admission: 05/29/23 15:50 Date of discharge: 06/01/23 Primary care physician: Unknown Physician DS: Diagnosis Discharge Diagnosis (1) Pyelonephritis: Status: Acute (2) Hypokalemia: Status: Acute DS: Summary Hospital Course Hospital Course: from admission H+P by hospitalist Ulysses Tejada DO, 05/30/23: 28-year-old female past medical history significant for renal calculi presents to the emergency room today with fever of 101 left low back pain and hematuria and chills worsening over the last week. She states the symptoms are similar to past kidney stones. In the emergency room workup is consistent with pyelonephritis. She received ceftriaxone IV and will be admitted for treatment of same She was admitted to the medical-surgical service. Not septic nor bacteremic. She was given IV ceftriaxone, IV fluids, and potassium repletion. Urine culture grew E. coli resistant to ampicillin and levofloxacin. She was discharged home on 7 days of cefuroxime and instructed to establish primary care as soon as possible. Time Attestation Total time managing care of this patient today: 35 mintues. Discharge coordination time: Greater than 30 minutes Quality: Safe Use of Opioids Does Pt have an Active Cancer Diagnosis on the Problem List?: No Quality: Stroke Does the patient have a stroke diagnosis?: No Physical Exam Vital Signs: Vital Signs: Last Vital Signs Temp 97.4 F 06/01/23 07:33 Pulse 77 06/01/23 07:33 Resp 17 06/01/23 07:33 BP 109/56 L 06/01/23 07:33 Pulse Ox 99 06/01/23 07:33 O2 Del Method Room Air 06/01/23 07:33 BMI result Body Mass Index 30.1 Gen: in no acute distress HEENT: sclera anicteric, moist mucus membranes Neck: supple Lungs: clear to auscultation bilaterally Heart: regular rate and rhythm, no murmurs Abd: soft, non-tender, non-distended Ext: no edema Skin: warm/well-perfused Neuro: alert and oriented x3, no focal findings Psych: appropriate affect DS: Data Data Completed and Pending Completed studies during hospitalization [Text1]: Laboratory Results WBC 10.1 X10*3/uL (4.8-10.8) 05/31/23 09:25 RBC 3.51 X10*6/uL (4.20-5.50) L 05/31/23 09:25 Hgb 10.6 g/dl (12.0-16.0) L 05/31/23 09:25 Hct 31.5 % (37.0-47.0) L 05/31/23 09:25 MCV 89.7 fL (80.0-98.0) 05/31/23 09:25 MCH 30.2 pg (27.0-33.0) 05/31/23 09:25 MCHC 33.7 g/dl (31.0-35.0) 05/31/23 09:25 RDW 13.7 % (11.0-16.0) 05/31/23 09:25 Plt Count 292 X10*3/uL (160-400) 05/31/23 09:25 MPV 9.8 fL (9.4-12.3) 05/31/23 09:25 Immature Gran % (Auto) 0.3 % (0.0-0.4) 05/30/23 05:38 Neut % (Auto) 74.9 % (45-73) H 05/30/23 05:38 Lymph % (Auto) 13.5 % (20-40) L 05/30/23 05:38 [place] % (Auto) 11.1 % (2-11) H 05/30/23 05:38 Eos % (Auto) 0.0 % (0-4) 05/30/23 05:38 Baso % (Auto) 0.2 % (0-2) 05/30/23 05:38 Lymph # (Auto) 1.4 X10*3/uL (1.2-4.9) 05/30/23 05:38 [place] # (Auto) 1.1 X10*3/uL (0.1-1.2) 05/30/23 05:38 Eos # (Auto) 0.0 X10*3/uL (0.0-0.4) 05/30/23 05:38 Baso # (Auto) 0.0 X10*3/uL (0.0-0.2) 05/30/23 05:38 Abs Immat Gran (auto) 0.03 X10*3/uL (0.00-0.03) 05/30/23 05:38 Absolute Neuts (auto) 7.7 x10*3/uL (2.0-8.3) 05/30/23 05:38 Absolute Nucleated RBC 0.000 X10*3/uL (0.0-0.012) 05/31/23 09:25 Nucleated RBC % (auto) 0.0 /100WBC (0.0-0.2) 05/31/23 09:25 Hold Purple Top SEE NOTE 06/01/23 06:11 Sodium 142 mmol/L (135-145) 06/01/23 06:11 Potassium 3.9 mmol/L (3.3-5.1) D 06/01/23 06:11 Chloride 107 mmol/L (96-108) 06/01/23 06:11 Carbon Dioxide 26 mmol/L (22-29) 06/01/23 06:11 Anion Gap 13 (12-20) 06/01/23 06:11 BUN 7 mg/dL (9-16) L 06/01/23 06:11 Creatinine 0.57 mg/dL (0.5-1.4) 06/01/23 06:11 Estim Creat Clear Calc 128.1 06/01/23 06:11 Estimated GFR > 60 06/01/23 06:11 Random Glucose 88 mg/dL (60-115) 06/01/23 06:11 Lactic Acid 0.8 mmol/L (0.5-2.0) 05/29/23 12:36 Calcium 9.0 mg/dL (8.4-10.2) 06/01/23 06:11 Magnesium 2.0 mg/dL (1.6-2.6) 06/01/23 06:11 Total Bilirubin 0.3 mg/dL (0.0-1.0) 05/30/23 05:38 Direct Bilirubin 0.2 mg/dL (0.0-0.5) 05/29/23 09:04 AST 23 U/L (5-31) 05/30/23 05:38 ALT 13 U/L (0-31) 05/30/23 05:38 Alkaline Phosphatase 54 U/L (39-117) 05/30/23 05:38 Total Protein 6.2 g/dL (6.5-8.0) L 05/30/23 05:38 Albumin 3.4 g/dL (3.5-5.0) L 05/30/23 05:38 Lipase 10 U/L (8-78) 05/29/23 09:04 Urine Color RED 05/29/23 09:38 Urine Appearance Hazy 05/29/23 09:38 Urine pH 5.5 (5.0-9.0) 05/29/23 09:38 Ur Specific [place] 1.020 (1.005-1.025) 05/29/23 09:38 Urine Protein 100 (2+) mg/dL (Neg-Trace) H 05/29/23 09:38 Urine Glucose (UA) Negative mg/dL (Negative) 05/29/23 09:38 Urine Ketones See Note mg/dL (Negative) 05/29/23 09:38 Urine Blood Large (3+) (Negative) H 05/29/23 09:38 Urine Nitrite Positive (Negative) H 05/29/23 09:38 Ur Leukocyte Esterase Negative (Negative) 05/29/23 09:38 Urine RBC >20 /HPF (0-2) H 05/29/23 09:38 Urine WBC 11-20 /HPF (0-5) H 05/29/23 09:38 Ur Squamous Epith Cells 3-5 /HPF (0-2) 05/29/23 09:38 Urine Bacteria 4+ (None Seen) 05/29/23 09:38 Hyaline Casts 0-2 /LPF (0-2) 05/29/23 09:38 Urine Test NEGATIVE (NEGATIVE) 05/29/23 09:38 COVID-19 (KIERSTEN) Negative (Negative) 05/29/23 13:07 COVID-19 Clin Com See Note 05/29/23 13:07 Influenza Type A (HYACINTH) Negative (Negative) 05/29/23 13:07 Influenza Type B (HYACINTH) Negative (Negative) 05/29/23 13:07 Influenza A & B Note See Note 05/29/23 13:07 Impressions Renal Ultrasound 05/29/23 13:30 IMPRESSION: 1. Suspect acute pyelonephritis left kidney. No echogenic stones or hydronephrosis seen. 2. The right kidney is unremarkable. Discharge Plan Discharge Anticipated Discharge Date/Time: 06/01/23 10:32 Patient Disposition: Home, Self-Care Discharge Diagnosis: pyelonephritis hypokalemia Referrals: [facility]] - 1 Week Physician,Anisa Benitez [Primary Care Provider] - 1 Week Discharge Medications: New cefuroxime axetil 500 mg tablet 500 mg PO BID Qty: 14 0RF Discharge Orders: Discharge Order (Routine); Ordered 06/01/23 Ordered By: Otoniel Galvan Diet: Advance to usual diet Activity on Discharge: As tolerated Stand Alone Forms: Patient Portal Discharge page Care Plan Goals: cure of infection Health Concerns: pyelonephritis hypokalemia Plan of Treatment: cefuroxime 500 mg twice daily for 7 days take acetaminophen or ibuprofen for pain establish primary care as soon as possible Please follow up with your primary care doctor within 1 week. Return to the hospital if you experience recurrent or worsening symptoms. Assessment: See Discharge Summary.
--- NOTE | 2023-06-01 11:02 | MHC.CM.PN ---
PT TO DC HOME TODAY WITH NO SERVICES PT TO ARRANGE TRANSPORT
== END 2023-06-01 11:17 | disposition home or self-care (01) | DRG 463 ==
LOC: HO.ED 14:55 → HO.EDOVER 16:00 → HO.S3 05-31 13:51
PROVIDERS: Physician Assistant; Admitting Provider Hospitalist; Emergency Provider Emergency Medicine; Visit Provider Family Medicine
DX: N10 Acute pyelonephritis (principal); B96.20 Unspecified Escherichia coli [E. coli] as the cause of diseases classified elsewhere; R31.9 Hematuria, unspecified; Z16.11 Resistance to penicillins; Z16.23 Resistance to quinolones and fluoroquinolones; Z20.822 Contact with and (suspected) exposure to COVID-19
CPT/HCPCS: 36415; 76775; 80048; 80053; 80076; 81001; 81003; 81025; 83605; 83690; 83735; 85025; 85027; 87040; 87086; 87088; 87186; 87502; 87635; 99221; 99285; J0696; J1650; J1885; J2270; J2405

== ENCOUNTER → 2023-05-29 15:50 | Outpatient (BNV) | payer MEDICAID, SELFPAY | PROVIDERS: Admitting Provider Hospitalist; Emergency Provider Emergency Medicine; Visit Provider Hospitalist | DX: N10 Acute pyelonephritis (principal); E87.6 Hypokalemia | CPT/HCPCS: 99222; 99231; 99232; 99239 ==